=== PATIENT | female | born 2005 | race Caucasian/White ===

== ENCOUNTER 2023-08-14 10:38 | Outpatient (CLI) | payer OTHER ==
--- NOTE | 2023-08-14 11:28 | Sleep Patient Instructions ---
Sleep Center Visit Summary - Patient Visit Information Reason for Visit: Initial consult for evaluation of sleep disordered breathing and other sleep issues. - Patient Instructions Instructions Attached: Sleep Study, Sleep Study Home Monitor Additional Instructions: You will be completing a sleep study, either an in-lab polysomnography (PSG) or home sleep study (HST). You will follow-up in the sleep care office after the sleep study is completed to hear the results and talk about therapy, if needed. You will be called by our office staff to schedule this appointment, but you may contact us with any questions. - Clinic Information Contact: [facility] [address] [place] [id number] [email or web address] T: [phone]
--- NOTE | 2023-08-14 11:31 | SLEEP CARE CONSULTATION ---
Information from patient questionnaire entered by Sammy Theodore. I have reviewed and concur with the information entered by Sammy Theodore. This document represents the service I personally performed and the decisions made by me, Ivelisse Haddad ARNP. History of Present Illness Service Date and Time: 08/14/2023 1038 Reason for Visit: New patient Chief Complaint: reports: Excessive daytime sleepiness, Fatigue Date of Onset: 3YRS Usual bedtime: 2200 Time it takes to fall asleep: 30MINS Snores at night: No Observed to quit breathing while asleep: No Sleeps alone due to snoring: No Number of times waking at night: 1 Reasons for waking at night: reports: Bathroom Toss, Turn, or Twitch while sleeping: No Recalls having dreams: Yes Usually gets out of bed at: 0800 Feels refreshed in the morning: No Morning headache: No Sleepy or fatigued during the day: Yes Ever fallen asleep while driving: No Takes day naps: Yes Dreams during day naps: Yes Prior sleep studies: No Additional HPI information: I had the pleasure of seeing JENNIFER BARAJAS today regarding the possibility of her having a sleep disorder. Her current complaints are excessive daytime sleepiness and fatigue. She feels like she is sleeping for long periods of time and still not feeling refreshed. The patient tells me that she normally goes to bed around 10 pm, and it takes her approximately 30 minutes to fall asleep. Sometimes longer to fall asleep if having high anxiety. She has not been told that she snores loudly and irregularly at night. She has not been observed to stop breathing in her sleep. She currently is sleeping alone. She can recall waking up on the average of 1 time during the night. Most of the time she wakes up because of bathroom. She has not awakened for her own snoring, choking, and having to gasp for air. There is not a lot of tossing and turning in her sleep when not feeling anxious. Generally she can recall having dreams. She usually wakes up at 8 AM and does not feel refreshed. She usually does not have a morning headache. During the day she complains of feeling sleepy and fatigued. She has never fallen asleep while driving nor has any accident due to sleepiness. She usually naps for about 3-4 hours every day. If she naps, upon falling asleep during the day she admits to having dreams. She reports having impaired concentration during the day. There is no somniloquy (sleep talking) or somnambulism (sleep walking). 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 Patient is Single and lives in . Have you smoked in the past 12 months: No Alcohol use: No Caffeine use: No Family History Family history of sleep disordered breathing: Yes Family Hx Sleep Apnea: Mother: Snoring, Father: Snoring, Grandparent: Snoring Allergies and Home Medications Known drug allergies: No Drug allergies reviewed: Yes Home medication list reviewed: Yes (as listed) Allergy and home medication list: Allergies No Known Drug Allergies Allergy (Verified 08/10/23 12:29) Home Medications Medication Instructions Recorded Confirmed Last Taken Type Esomeprazole Magnesium See Rx Instructions .ROUTE .COMPLEX 08/14/23 08/14/23 Unknown History Northidrone See Rx Instructions .ROUTE .COMPLEX 08/14/23 Unknown History Testosterone Cypionate See Rx Instructions .ROUTE .COMPLEX 08/14/23 08/14/23 Unknown History busPIRone [Buspar] See Rx Instructions .ROUTE .COMPLEX 08/14/23 08/14/23 Unknown History Review of Systems Weight gain over past 5 years: 30, currently up Weight loss over past 5 years: 10 Cardiovascular: denies: high blood pressure Gastrointestinal: denies: heartburn Urinary: reports: frequency Neurological: reports: headaches. denies: head trauma Psychiatric: reports: anxiety, depression Ear/Nose/Throat: denies: injury to nose, tonsillectomy Endocrine: denies: thyroid disease Physical Exam Vital signs obtained and entered by: SAMMY Lopez MA Blood Pressure: 126/80 (LEFT ARM) Cuff size: long Heart Rate: 88 O2 Saturation: 95 Height: 5 ft 2 in Weight: 256 lb Body Mass Index: 46.7 BMI Classification: Morbidly Obese Neck circumference: 16.25 Nostrils: patent to airflow Mouth and throat: narrow oropharynx Soft palate: long Hard palate: normal Uvula: normal Uvula visualization: 25% Mallampati Class III Tongue: enlarged in size with teeth hines on lateral edges Tonsils: 1+ Neck: normal w/o lymphadenopathy or thyromegaly Heart: regular rate and rhythm Lungs: clear bilaterally Impression and Plan 1. Suspected Obstructive Sleep Apnea-Hypopnea Syndrome, as suggested by a history of irregular snoring, unrefreshed sleep, cognitive impairment, and excessive daytime sleepiness. Narrow oropharynx and obesity are common predisposing factors for obstructive sleep apnea-hypopnea syndrome. I recommend proceeding to polysomnography to confirm the diagnosis and to assess severity. If the patient has significant sleep disordered breathing, a manual CPAP titration study will also be performed to find the optimal treatment pressure. I informed the patient of what the sleep studies involve and after some discussion, obtained agreement to proceed. The pathophysiology of obstructive sleep apnea-hypopnea syndrome was discussed with the patient and health risks of cardiovascular and cerebrovascular disease if not treated. Risks of drowsy driving discussed in detail and patient advised to avoid long distance driving and to taffy puller at the first sign of drowsiness. Patient agreed to plan. * Schedule polysomnography * Avoid long distance driving or driving when feeling sleepy. * Avoid alcohol, sedative and muscle relaxant around bedtime. * Attempt to lose weight. * Review instructions provided by trained office staff on how to prepare for the sleep study. * Return for follow-up after sleep study completed. Counseling Topics: Weight loss health impact Plan: PSG and follow up Visit Type: In Office Time Spent with Patient (minutes): 30 Provider Statement: I spent 100% of the Face to Face Visit with the patient with greater than 50% spent counseling the patient and coordination of care.
[2023-08-14 11:39] VITALS: BP 126/80; O2SAT 95
== END 2023-08-14 10:39 | disposition home or self-care (01) ==
LOC: SC 10:38
PROVIDERS: ATTEND Nurse Practitioner Family
DX: R06.83 Snoring (principal); G47.8 Other sleep disorders; G47.10 Hypersomnia, unspecified; R41.89 Other symptoms and signs involving cognitive functions and awareness; R53.83 Other fatigue; E66.01 Morbid (severe) obesity due to excess calories; Z68.42 Body mass index [BMI] 45.0-49.9, adult; F32.9 Major depressive disorder, single episode, unspecified
CPT/HCPCS: 99203; 99212